=== PATIENT | male | born 1960 | race Caucasian/White ===

== ENCOUNTER 2019-02-12 12:22 | Emergency (ER) | payer OTHER ==
[2019-02-12] MEDS ORDERED: DEXAMETHASONE 10 MG/ML VIAL ONE (14:11)
[2019-02-12] MEDS ORDERED: LEVALBUTEROL 1.25 MG/3 ML NEB ONE (14:11)
[2019-02-12] MEDS ORDERED: NA CHLORIDE 0.9% 1,000 ML ONE ×2 (14:11→15:33)
[2019-02-12] MEDS ORDERED: DIAZEPAM 2 MG TABLET ONE (14:17)
[2019-02-12 14:20] LABS: Absolute Lymphocytes (CBC) 0.4 K/uL (0.7-4.9); Basophils % 0.4 % (0-1.3); Eosinophils % 0.9 % (0-4.4); Hematocrit 38.6 % (39.6-49.0); Lymphocytes % 7.9 % (15.3-44.8); MPV 7.6 fL (7.6-11.3); Monocytes % 10.3 % (3.3-12.3); RBC Red Blood Cell Count 4.55 M/uL (4.33-5.43)
--- NOTE | 2019-02-12 14:44 | RAD REPORT ---
EXAM DESCRIPTION: Anthony Single View02/12/2019 2:00 pm CLINICAL HISTORY: Cough COMPARISON: none FINDINGS: The lungs appear clear of acute infiltrate. The heart is normal size IMPRESSION: No acute abnormalities displayed
[2019-02-12 14:47] LABS: BUN Blood Urea Nitrogen 3 mg/dL (7-18); Bicarbonate 31 mmol/L (21-32); Glucose Level 89 mg/dL (74-106); Potassium 3.9 mmol/L (3.5-5.1)
[2019-02-12 14:50] LABS: Sodium Level 108 mmol/L (136-145)
--- NOTE | 2019-02-12 15:25 | RAD REPORT ---
EXAM DESCRIPTION: CT - Head Brain Wo Cont - 02/12/2019 3:12 pm CLINICAL HISTORY: HEADACHE Headache and cough COMPARISON: <Comparisons> TECHNIQUE: All CT scans are performed using dose optimization technique as appropriate and may inclu de automated exposure control or mA/KV adjustment according to patient size. FINDINGS: No intracranial hemorrhage, hydrocephalus or extra-axial fluid collection.No areas of brai n edema or evidence of midline shift. The paranasal sinuses and mastoids are clear. The calvarium is intact. IMPRESSION: No acute intracranial abnormality.
--- NOTE | 2019-02-12 15:30 | RAD REPORT ---
EXAM DESCRIPTION: CT - Soft Tissue Neck W/Contr CLINICAL HISTORY: neck pain, subjective swelling, hx of throat cancer COMPARISON: No comparisons TECHNIQUE All CT scans are performed using dose optimization technique as appropriate and may includ e automated exposure control or mA/KV adjustment according to patient size. FINDINGS: Nasopharyngeal tissues are normal in appearance. Fossa Rosenmller are normal. Somewhat irregular appearance to the right aryepiglottic fold and supraglottic airway noted. No bulky lymphadenopathy is seen in the neck. No focal cord abnormality discerned. Salivary glands are normal in appearance. Upper lung jimenez are clear. Included intracranial contents are unremarkable. IMPRESSION: No acute process is identified. Irregular somewhat nodular appearance to the right aryepiglottic and the supraglottic airway. Conside r direct visualization of this region for further assessment if not recently performed.
[2019-02-12] MEDS ORDERED: HYDROCODONE/CHLORPHEN 5 ML/OSYR ONE (16:01)
--- NOTE | 2019-02-12 16:40 | ER ---
Nurse's Notes [facility] Name: Isael Dent Age: 58 yrs Sex: Male : 1960 Arrival Date: 02/12/2019 Time: 12:25 Bed 5 Private MD: Diagnosis: Cough;Dyspnea, unspecified;Headache;Hypo-osmolality and hyponatremia Presentation: 02/12 12:34 Presenting complaint: Patient states: COUGH x5 DAYS WITH HEADACHE. Transition of care: bp patient was not received from another setting of care. Onset of symptoms is unknown. Risk Assessment: Do you want to hurt yourself or someone else? Patient reports no desire to harm self or others. Initial Sepsis Screen: Does the patient meet any 2 criteria? No. Patient's initial sepsis screen is negative. Does the patient have a suspected source of infection? No. Patient's initial sepsis screen is negative. Care prior to arrival: None. 12:34 Method Of Arrival: Ambulatory bp 12:34 Acuity: CAM[place] 3 bp Triage Assessment: 12:36 Headache History: The patient has had previous headaches and this one is similar to bp previous episodes. General: Appears in no apparent distress. comfortable, obese, Behavior is cooperative, appropriate for age, anxious. Pain: Complains of pain in head Pain Pain began 5 DAYS AGO Also complains of no other associated symptoms. Neuro: Level of Consciousness is awake, alert, obeys commands, Oriented to person, place, time, situation, Appropriate for age. Historical: - Allergies: 12:36 No Known Allergies; bp - Home Meds: 12:36 amlodipine 5 mg tab 1 tab once daily [Active]; omeprazole 40 mg Oral cpDR 1 cap once bp daily [Active]; sertraline 100 mg oral tab 1 tab once daily [Active]; hydrochlorothiazide 25 mg Oral tab 1 tab once daily [Active]; valsartan 160 mg oral tab 1 tab once daily [Active]; - PMHx: 12:36 Cancer; Hypertension; bp - Immunization history:: Adult Immunizations up to date. - Social history:: Smoking status: Patient/guardian denies using tobacco. - Ebola Screening: : No symptoms or risks identified at this time. - Family history:: not pertinent. - Hospitalizations: : No recent hospitalization is reported. Screenin:19 Abuse screen: Denies threats or abuse. Nutritional screening: No deficits noted. tw2 Tuberculosis screening: No symptoms or risk factors identified. Fall Risk None identified. Assessment: 13:23 General: Appears in no apparent distress. obese, Behavior is calm, cooperative, tw2 appropriate for age. Pain: Complains of pain in left parietal area, right parietal area and occipital area. Neuro: Level of Consciousness is awake, alert, obeys commands, Oriented to person, place, time, situation. Cardiovascular: Heart tones S1 S2 Patient's skin is warm and dry. Cardiovascular: Edema is 2+ to left midcalf, left ankle, right midcalf and right ankle. Respiratory: Airway is patent Respiratory effort is even, unlabored, Respiratory pattern is regular, symmetrical, Breath sounds are clear bilaterally. Respiratory: Parent/caregiver reports the patient having cough that is dry, persistent. Respiratory: pt reports hx of Throat cancer 5 years ago , states "but they got it all, and i have been checked out but i have sores on the sides of my tongue now". GI: Abdomen is round obese, Bowel sounds present X 4 quads. : No signs and/or symptoms were reported regarding the genitourinary system. EENT: No signs and/or symptoms were reported regarding the EENT system. Derm: No signs and/or symptoms reported regarding the dermatologic system. Musculoskeletal: Range of motion: intact in all extremities. 14:22 Reassessment: Patient appears in no apparent distress at this time. No changes from tw2 previously documented assessment. Patient and/or family updated on plan of care and expected duration. Pain level reassessed. Patient is alert, oriented x 3, equal unlabored respirations, skin warm/dry/pink. 15:22 Reassessment: Patient appears in no apparent distress at this time. No changes from tw2 previously documented assessment. Patient and/or family updated on plan of care and expected duration. Pain level reassessed. Patient is alert, oriented x 3, equal unlabored respirations, skin warm/dry/pink. 16:37 Reassessment: Patient appears in no apparent distress at this time. No changes from tw2 previously documented assessment. Patient and/or family updated on plan of care and expected duration. Pain level reassessed. Patient is alert, oriented x 3, equal unlabored respirations, skin warm/dry/pink. Vital Signs: 12:38 BP 137 / 68; Pulse 73; Resp 16; Temp 97.6; Pulse Ox 95% ; Weight 131.54 kg; Height 5 bp ft. 8 in. (172.72 cm); 13:20 BP 130 / 72; Pulse 71; Resp 17; Pulse Ox 95% on R/A; tw2 14:21 BP 133 / 76; Pulse 69; Resp 17; Pulse Ox 100% on R/A; tw2 15:23 BP 147 / 65; Pulse 78; Resp 17; Pulse Ox 100% on R/A; tw2 16:37 BP 146 / 64; Pulse 83; Resp 17; Pulse Ox 99% on R/A; tw2 12:38 Body Mass Index 44.09 (131.54 kg, 172.72 cm) bp ED Course: 12:25 Patient arrived in ED. mr 12:35 Triage completed. bp 12:38 Arm band placed on. bp 13:19 Britni Morel, RN is Primary Nurse. tw2 13:19 Bed in low position. Call light in reach. tw2 13:27 Jan Huff MD is Attending Physician. rn 13:57 X-ray completed. Portable x-ray completed in exam room. Patient tolerated procedure mh1 well. 14:03 XRAY Chest (1 view) In Process Unspecified. EDMS 14:05 Inserted saline lock: 20 gauge in right antecubital area, using aseptic technique. tw2 Blood collected. 14:32 Radiology exam delayed due to lab results not completed at this time. (BUN/Creatinine). jg6 15:13 CT Head Brain wo Cont In Process Unspecified. EDMS 15:14 CT Soft Tissue Neck W/contr In Process Unspecified. EDMS 16:53 No provider procedures requiring assistance completed. IV discontinued, intact, tw2 bleeding controlled, No redness/swelling at site. Pressure dressing applied. Administered Medications: 14:00 Drug: Xopenex 1.25 mg Route: Inhalation; tw2 14:00 Drug: Valium 2 mg Route: PO; tw2 15:24 Follow up: Response: No adverse reaction; Anxiety decreased tw2 14:11 Drug: Decadron - Dexamethasone 10 mg Route: IVP; Site: right antecubital; tw2 15:19 Follow up: Response: No adverse reaction tw2 14:11 Drug: NS 0.9% 1000 ml Route: IV; Rate: 1000 ml; Site: right antecubital; tw2 16:52 Follow up: Response: No adverse reaction; IV Status: Completed infusion; IV Intake: tw2 1000ml 15:24 Drug: NS 0.9% 1000 ml Route: IV; Rate: 1000 ml; Site: right antecubital; tw2 16:52 Follow up: Response: No adverse reaction; IV Status: Completed infusion; IV Intake: tw2 1000ml 15:46 Drug: Tussionex Pennkinetic ER 5 ml Route: PO; tw2 16:51 Follow up: Response: No adverse reaction tw2 Intake: 16:52 IV: 1000ml; Total: 1000ml. tw2 16:52 IV: 1000ml; Total: 2000ml. tw2 Outcome: 16:39 Discharge ordered by . rn 16:53 Discharged to home ambulatory. tw2 16:53 Condition: stable 16:53 Discharge instructions given to patient, Instructed on discharge instructions, follow up and referral plans. medication usage, Demonstrated understanding of instructions, follow-up care, medications, Prescriptions given X 4. 16:54 Patient left the ED. tw2 Signatures: Dispatcher [employer] RADHA BellInocencia clark mr Lindsey Marycarmen 1 Jan Huff MD MD rn Wise, Tara, RN RN tw2 Robby Schmidt RN RN bp Garcia, Jessica jKimberly
--- NOTE | 2019-02-12 16:41 | EDPHYS ---
Physician Documentation [facility] Name: Isael Dent Age: 58 yrs Sex: Male : 1960 Arrival Date: 02/12/2019 Time: 12:25 Bed 5 Private MD: ED Physician Jan Huff HPI: 02/12 13:52 This 58 yrs old Male presents to ER via Ambulatory with complaints of Cough, rn Headache, Weakness. 13:53 The patient or guardian reports cough, difficulty breathing. Onset: The rn symptoms/episode began/occurred 5 day(s) ago. Severity of symptoms: At their worst the symptoms were moderate, in the emergency department the symptoms are unchanged. Modifying factors: The symptoms are alleviated by nothing, the symptoms are aggravated by nothing. The patient has experienced a previous episode. The patient has not recently seen a physician. Reports cough/sore throat for 5 days, no fever, reports now having neck pain and headache for last couple of days. Also reports tingling to both hands. Reports hx of throat cancer but cancer free, has had radiation, years ago but feels like throat is swollen and painful, states feels more like infection. . Historical: - Allergies: 12:36 No Known Allergies; bp - Home Meds: 12:36 amlodipine 5 mg tab 1 tab once daily [Active]; omeprazole 40 mg Oral cpDR 1 cap once bp daily [Active]; sertraline 100 mg oral tab 1 tab once daily [Active]; hydrochlorothiazide 25 mg Oral tab 1 tab once daily [Active]; valsartan 160 mg oral tab 1 tab once daily [Active]; - PMHx: 12:36 Cancer; Hypertension; bp - Immunization history:: Adult Immunizations up to date. - Social history:: Smoking status: Patient/guardian denies using tobacco. - Ebola Screening: : No symptoms or risks identified at this time. - Family history:: not pertinent. - Hospitalizations: : No recent hospitalization is reported. ROS: 13:53 Constitutional: Negative for fever, chills, and weight loss, Eyes: Negative for injury, rn pain, redness, and discharge, ENT: + sore throat and headache Neck: + subjective swelling of neck Cardiovascular: Negative for chest pain, palpitations, and edema, Respiratory: + cough and sob Abdomen/GI: Negative for abdominal pain, nausea, vomiting, diarrhea, and constipation, MS/Extremity: Negative for injury and deformity, Skin: Negative for injury, rash, and discoloration, Neuro: + headache and generalized weakness Exam: 13:53 Constitutional: Overweight male, sitting on edge of bed, deep cough Head/Face: rn Normocephalic, atraumatic. Eyes: Pupils equal round and reactive to light, extra-ocular motions intact. Lids and lashes normal. Conjunctiva and sclera are non-icteric and not injected. Cornea within normal limits. Periorbital areas with no swelling, redness, or edema. ENT: No oral swelling or stridor, + posterior pharyngeal erythema Neck: + firm lower neck and rash (patient states both at baseline since radiation and cancer), supple, no meningeal signs. Cardiovascular: Regular rate and rhythm. No pulse deficits. Respiratory: Clear bilateral breath sounds, no retractions. Abdomen/GI: soft, non-tender MS/ Extremity: Pulses equal, no cyanosis. Neurovascular intact. Full, normal range of motion. Equal circumference. Neuro: Awake and alert, GCS 15, oriented to person, place, time, and situation. Cranial nerves II-XII grossly intact. Motor strength 5/5 in all extremities. Sensory grossly intact. Vital Signs: 12:38 BP 137 / 68; Pulse 73; Resp 16; Temp 97.6; Pulse Ox 95% ; Weight 131.54 kg; Height 5 bp ft. 8 in. (172.72 cm); 13:20 BP 130 / 72; Pulse 71; Resp 17; Pulse Ox 95% on R/A; tw2 14:21 BP 133 / 76; Pulse 69; Resp 17; Pulse Ox 100% on R/A; tw2 15:23 BP 147 / 65; Pulse 78; Resp 17; Pulse Ox 100% on R/A; tw2 16:37 BP 146 / 64; Pulse 83; Resp 17; Pulse Ox 99% on R/A; tw2 12:38 Body Mass Index 44.09 (131.54 kg, 172.72 cm) bp MDM: 13:27 Patient medically screened. rn 16:02 Differential Diagnosis: Influenza Upper Respiratory Infection Sinusitis Pharyngitis rn Viral Syndrome. 16:03 Data reviewed: vital signs, nurses notes, lab test result(s), radiologic studies, CT rn scan, plain films, and as a result, I will discharge patient. Test interpretation: by ED physician or midlevel provider: plain radiologic studies, CXR negative for acute pneumonia.. Counseling: I had a detailed discussion with the patient and/or guardian regarding: the historical points, exam findings, and any diagnostic results supporting the discharge/admit diagnosis, lab results, radiology results, the need for outpatient follow up, to return to the emergency department if symptoms worsen or persist or if there are any questions or concerns that arise at home. Response to treatment: the patient's symptoms have mildly improved after treatment, and as a result, I will discharge patient. ED course: SPoke with patient, neg flu/strep, no acute findings on ct head/ct neck, spoke with him about non-specific irregularity of pharynx structure and recommended outpt ENT f/u for direct visualization, states will dc as soon as gets back to [place] where he is from. . 16:04 ED course: Pt states drinks ETOH and that in addition to HCTZ might be etiology of rn hyponatremia. Recommend ETOH cessation and stopping HCTZ for now.. 16:39 ED course: On phone, speaking full sentences, ambulatory without dyspnea. Will dc home rn with steroids, abx, cough medication, and inhaler, recommend ENT f/u as outpt and given return precautions.. 02/12 13:43 Order name: CBC with Diff 02/12 13:43 Order name: Basic Metabolic Panel; Complete Time: 14:51 rn 02/12 13:43 Order name: Procalcitonin; Complete Time: 15:38 02/12 13:43 Order name: Flu; Complete Time: 14:51 rn 02/12 13:43 Order name: Strep; Complete Time: 14:51 rn 02/12 13:46 Order name: CBC with Automated Diff; Complete Time: 14:30 EDAZ 02/12 13:43 Order name: CT Head Brain wo Cont; Complete Time: 15:38 rn 02/12 13:45 Order name: CT Soft Tissue Neck W/contr; Complete Time: 15:38 rn 02/12 13:45 Order name: XRAY Chest (1 view); Complete Time: 14:51 rn 02/12 14:32 Order name: Throat Culture EDAZ 02/12 13:43 Order name: IV Start; Complete Time: 14:20 rn Administered Medications: 14:00 Drug: Xopenex 1.25 mg Route: Inhalation; tw2 14:00 Drug: Valium 2 mg Route: PO; tw2 15:24 Follow up: Response: No adverse reaction; Anxiety decreased tw2 14:11 Drug: Decadron - Dexamethasone 10 mg Route: IVP; Site: right antecubital; tw2 15:19 Follow up: Response: No adverse reaction tw2 14:11 Drug: NS 0.9% 1000 ml Route: IV; Rate: 1000 ml; Site: right antecubital; tw2 16:52 Follow up: Response: No adverse reaction; IV Status: Completed infusion; IV Intake: tw2 1000ml 15:24 Drug: NS 0.9% 1000 ml Route: IV; Rate: 1000 ml; Site: right antecubital; tw2 16:52 Follow up: Response: No adverse reaction; IV Status: Completed infusion; IV Intake: tw2 1000ml 15:46 Drug: Tussionex Pennkinetic ER 5 ml Route: PO; tw2 16:51 Follow up: Response: No adverse reaction tw2 Disposition: 02/12/19 16:39 Discharged to Home. Impression: Cough, Dyspnea, unspecified, Headache, Hypo-osmolality and hyponatremia. - Condition is Stable. - Discharge Instructions: General Headache Without Cause, Hyponatremia, Shortness of Breath, Cough, Adult. - Prescriptions for Augmentin 875- 125 mg Oral Tablet - take 1 tablet by ORAL route every 12 hours for 10 days; 20 tablet. Prednisone 20 mg Oral Tablet - take 3 tablet by ORAL route once daily for 5 days; 15 tablet. Albuterol Sulfate 90 mcg/actuation - inhale 1-2 puff by INHALATION route every 4-6 hours; 1 Inhaler. Guaifenesin AC 10- 100 mg/5 mL Oral Liquid - take 10 milliliter by ORAL route every 4 hours As needed; 240 milliliter. - Medication Reconciliation Form, Thank You Letter, Antibiotic Education, Prescription Opioid Use, Work release form form. - Follow up: Private Physician; When: As needed; Reason: Recheck today's complaints, Re-evaluation by your physician. - Problem is new. - Symptoms have improved. Signatures: Dispatcher [employer] EDJan Silva MD MD rn Smirch, Shelby, RN RN ss Lester Foster PA PA cp Wise, Tara, RN RN tw2 Robby Schmidt RN RN bp Corrections: (The following items were deleted from the chart) 16:54 16:39 02/12/2019 16:39 Discharged to Home. Impression: Cough; Dyspnea, unspecified; tw2 Headache; Hypo-osmolality and hyponatremia. Condition is Stable. Discharge Instructions: General Headache Without Cause, Hyponatremia, Shortness of Breath, Cough, Adult. Prescriptions for Augmentin 875-125 mg Oral Tablet - take 1 tablet by ORAL route every 12 hours for 10 days; 20 tablet, Prednisone 20 mg Oral Tablet - take 3 tablet by ORAL route once daily for 5 days; 15 tablet, Albuterol Sulfate 90 mcg/actuation - inhale 1-2 puff by INHALATION route every 4-6 hours; 1 Inhaler, Guaifenesin AC 10-100 mg/5 mL Oral Liquid - take 10 milliliter by ORAL route every 4 hours As needed; 240 milliliter. and Forms are Medication Reconciliation Form, Thank You Letter, Antibiotic Education, Prescription Opioid Use. Follow up: Private Physician; When: As needed; Reason: Recheck today's complaints, Re-evaluation by your physician. Problem is new. Symptoms have improved. rn
== END 2019-02-12 16:54 | disposition home or self-care (01) ==
LOC: ER 12:22
DX: E87.1 Hypo-osmolality and hyponatremia (principal); R06.00 Dyspnea, unspecified; R51 Headache; I10 Essential (primary) hypertension; Z85.01 Personal history of malignant neoplasm of esophagus
CPT/HCPCS: 36415; 70450; 70491; 71045; 80048; 84145; 85025; 87070; 87081; 87804; 96361; 96374; 99284; J1100; J7030; Q9967